=== PATIENT | male | born 1995 | race Caucasian/White ===

== ENCOUNTER 2017-11-07 00:04 | Emergency (ER) | payer MEDICAID | END 2017-11-07 01:29 | disposition home or self-care (01) | LOC: D.ER 00:04 | DX: J02.9 Acute pharyngitis, unspecified (principal) ==

== ENCOUNTER 2019-12-20 17:28 | Emergency (ER) | payer MEDICAID ==
[2019-12-20 17:38] VITALS: Ht 177.8 cm
[2019-12-20 18:27] LABS: BASOPHILS 0.2 % (0-2); EOSINOPHILS 1.7 % (0-7); HEMATOCRIT 48.7 % (42.0-54.0); HEMOGLOBIN 16.8 g/dL (13.5-17.5); IMMATURE GRANULOCYTES 0.2 % (0-5); LYMPHOCYTES 29.3 % (15-50); MCHC 34.5 g/dL (31.0-37.0); MCV 92.8 fL (80.0-100.0); MEAN PLATELET VOLUME 9.9 fL (7.4-10.4); MONOCYTES 7.6 % (2-11); PLATELET COUNT 239 10x3/uL (130-400); RBC 5.25 10x6/uL (4.20-6.10); RDW 12.5 % (11.5-14.5); WBC 5.2 10x3/uL (4.8-10.8)
[2019-12-20 19:07] LABS: APTT 32.1 SECONDS (22.8-39.4); INR 0.94 (0.85-1.17); PROTIME 12.6 SECONDS (11.6-15.0)
[2019-12-20 20:05] LABS: CALC OSMOLALITY 271 mosm/kg (275-300); CARBON DIOXIDE 30.3 mmol/L (21.0-32.0); CHLORIDE - SERUM 100 mmol/L (98-107); GLUCOSE 79 mg/dL (74-106); SODIUM 137 mmol/L (136-145); UREA NITROGEN 10 mg/dL (7-18); eGFR NON AFRICAN AMERICAN > 90 mL/min (90-120)
[2019-12-20 20:09] LABS: ALBUMIN 4.7 g/dL (3.4-5.0); ALKALINE PHOSPHATASE 106 U/L (30-120); ALT (SGPT) 28 U/L (10-68); BILIRUBIN - TOTAL 0.48 mg/dL (0.2-1.3); LIPASE 80 U/L (73-393); PROTEIN - SERUM 8.8 g/dL (6.4-8.2)
[2019-12-20] MEDS ORDERED: HYDROCORTISO28.35 G1 TOPICAL (20:43)
[2019-12-20 21:03] VITALS: BP 146/79
== END 2019-12-20 21:03 | disposition home or self-care (01) ==
LOC: D.ER 17:28
PROVIDERS: Emergency Medicine
DX: K64.8 Other hemorrhoids (principal); K92.1 Melena; K62.89 Other specified diseases of anus and rectum